=== PATIENT | female | born 1940 | race Caucasian/White ===

== ENCOUNTER 2017-01-15 12:58 | Emergency (ER) | payer OTHER ==
[~2017-01-15] VITALS: Ht 170.2 cm; Wt 72.8 kg
[~2017-01-15 12:58] MED LIST: CALCIUM 600 WI1 EAC1 PO; CENTRUM SILVER1 EAC3 PO; DIAZEPAM5 MG PO; DILAUDID2 MG PO; DIOVAN HCT 81 TABLET PO; FENOFIBRATE145 M1 PO; FENOFIBRATE145 MG PO; GABAPENTIN300 MG; GABAPENTIN300 MG PO; GLUCOPHAGE500 MG PO; GLYBURIDE1.25 MG PO; HYDROCODON-ACE1 EAC7 PO; LYRICA50 MG PO; METFORMIN HCL500 MG PO; NAPROSYN500 MG PO; NEURONTIN300 MG PO; OMEPRAZOLE20 M2 PO; OMEPRAZOLE20 MG PO; PRILOSEC20 MG PO; TIZANIDINE HCL2 M1 PO; VALIUM5 MG PO; VALSARTAN-HCTZ1 EACH PO; VICODIN 5-3001 EACH PO; VIT B6 PO; VITAMIN B-6100 MG PO
[2017-01-15] MEDS ORDERED: AUGMENTIN875 MG PO (15:04)
[2017-01-15 15:42] VITALS: BP 125/66
== END 2017-01-15 15:43 | disposition home or self-care (01) ==
LOC: EME 12:58
PROC: 3E0234Z Introduction of Serum, Toxoid and Vaccine into Muscle, Percutaneous Approach (ICD-10-PCS; principal; 2017-01-15)
DX: S61.031A Puncture wound without foreign body of right thumb without damage to nail, initial encounter (principal); S61.011A Laceration without foreign body of right thumb without damage to nail, initial encounter; W55.01XA Bitten by cat, initial encounter; Z23 Encounter for immunization; K21.9 Gastro-esophageal reflux disease without esophagitis; E78.5 Hyperlipidemia, unspecified; I10 Essential (primary) hypertension; E11.9 Type 2 diabetes mellitus without complications; Z79.84 Long term (current) use of oral hypoglycemic drugs; Z96.651 Presence of right artificial knee joint
CPT/HCPCS: 73140; 99281; 99284

== ENCOUNTER → 2017-08-19 | Outpatient (CLI) | payer MEDICARE, OTHER ==
[~2017-08-19] MED LIST changes: +AUGMENTIN875 MG PO
== END | disposition home or self-care (01) ==
LOC: CDC 09:40
DX: Z01.810 Encounter for preprocedural cardiovascular examination (principal); M65.331 Trigger finger, right middle finger; M79.644 Pain in right finger(s); M18.11 Unilateral primary osteoarthritis of first carpometacarpal joint, right hand; E11.9 Type 2 diabetes mellitus without complications; I10 Essential (primary) hypertension; R94.31 Abnormal electrocardiogram [ECG] [EKG]
CPT/HCPCS: 93000